=== PATIENT | female | born 2000 | race Caucasian/White ===

== ENCOUNTER 2019-02-22 21:15 | Emergency (ER) | payer MEDICAID ==
[~2019-02-22] VITALS: Ht 172.7 cm; Wt 105.0 kg
[2019-02-22 22:51] LABS: CLARITY URINE CLEAR (CLEAR); COLOR URINE YELLOW (YELLOW); KETONES URINE TRACE (NEGATIVE); LEUKOCYTE ESTERASE URINE TRACE (NEGATIVE); NITRITE URINE NEGATIVE (NEGATIVE); OCCULT BLOOD URINE NEGATIVE (NEGATIVE); PH URINE 6.5 (4.5-8.0); PROTEIN URINE NEGATIVE (NEGATIVE); SPECIFIC GRAVITY URINE 1.033 (1.005-1.030)
[2019-02-23 02:09] LABS: BASOPHILS % 0.4 % (0.0-2.0); EOSINOPHILS % 1.9 % (0.0-5.0); HEMATOCRIT. 34.5 % (36.0-48.0); HEMOGLOBIN. 11.9 g/dL (12.0-16.0); LYMPHOCYTES % 27.7 % (20.0-50.0); MEAN CORPUSCULAR HEMOGLOBIN 30.3 pg (28.0-32.0); MEAN CORPUSCULAR VOLUME 88.4 fL (81.0-99.0); MEAN PLATELET VOLUME 10.2 fl (7.4-10.4); MONOCYTES % 7.4 % (2.0-8.0); NEUTROPHILS % 62.6 % (40.0-76.0); PLATELET 228 x1000/uL (130-400); RED BLOOD CELL COUNT 3.91 mill/uL (4.2-5.4); RED CELL DISTRIBUTION WIDTH 14.2 % (11.6-14.6)
[2019-02-23 02:16] LABS: CHLORIDE 106 mEq/L (98-107)
[2019-02-23 02:39] LABS: B-HCG QUANTITATIVE 29647 mIU/mL (<3)
[2019-02-23 06:05] VITALS: BP 103/45
== END 2019-02-23 06:31 | disposition home or self-care (01) ==
LOC: ER 21:15
DX: O20.0 Threatened abortion (principal); O26.891 Other specified pregnancy related conditions, first trimester; O23.41 Unspecified infection of urinary tract in pregnancy, first trimester; Z3A.12 12 weeks gestation of pregnancy
CPT/HCPCS: 36415; 76801; 76817; 80053; 81003; 81025; 84702; 85025; 86850; 86900; 86901; 99284; Z7610

== ENCOUNTER 2019-08-28 03:29 | Inpatient (IN) | payer MEDICAID, MEDICARE ==
[~2019-08-28] VITALS: Ht 175.3 cm; Wt 113.4 kg
[2019-08-28] MEDS ORDERED: PNV1TABL50 PO (05:11)
[2019-08-28] MEDS ORDERED: LACTATED RINGERS 1,000 ML IV SCH (05:15)
[2019-08-28] MEDS ORDERED: CARBOPROST TROMETHAMINE 250 MCG/ML AMPUL IM PRN (07:45)
[2019-08-28] MEDS ORDERED: MISOPROSTOL 100MCG TABLET VG PRN (07:45)
[2019-08-28] MEDS ORDERED: BUTORPHANOL TARTRATE 2 MG/ML VIAL IV PRN (07:45)
[2019-08-28] MEDS ORDERED: NALOXONE HCL 0.4 MG/ML 1ML VIAL IM PRN (07:45)
[2019-08-28] MEDS ORDERED: LIDOCAINE HCL 1% 20ML VIAL (Pyxis) INJ INFIL PRN (07:45)
[2019-08-28] MEDS ORDERED: METHYLERGONOVINE MALEATE 0.2 MG/ML IM PRN (07:45)
[2019-08-28] MEDS ORDERED: DEXT 5%/LR + PITOCIN 20UNITS/L 1,000 ML IV SCH ×2 (07:46→16:28)
[2019-08-28] MEDS: LACTATED RINGERS 1,000 ML IV SCH ×2 (08:04→11:53)
[2019-08-28 08:15] LABS: KETONES URINE NEGATIVE (NEGATIVE); LEUKOCYTE ESTERASE URINE 1+ (NEGATIVE); NITRITE URINE NEGATIVE (NEGATIVE); OCCULT BLOOD URINE 1+ (NEGATIVE); PH URINE 5.5 (4.5-8.0); PROTEIN URINE NEGATIVE (NEGATIVE); UROBILINOGEN URINE 0.2 E.U./dL (0.2-1.0)
[2019-08-28 08:15] LABS: BASOPHILS % 0.3 % (0.0-2.0); EOSINOPHILS % 1.4 % (0.0-5.0); HEMOGLOBIN. 12.1 g/dL (12.0-16.0); LYMPHOCYTES % 17.9 % (20.0-50.0); MEAN CORPUSCULAR HEMOGLOBIN 29.6 pg (28.0-32.0); MEAN CORPUSCULAR VOLUME 88.2 fL (81.0-99.0); MEAN PLATELET VOLUME 10.6 fl (7.4-10.4); MONOCYTES % 6.3 % (2.0-8.0); NEUTROPHILS % 74.1 % (40.0-76.0); PLATELET 224 x1000/uL (130-400); RED BLOOD CELL COUNT 4.08 mill/uL (4.2-5.4); RED CELL DISTRIBUTION WIDTH 14.9 % (11.6-14.6)
[2019-08-28 08:18] LABS: COLOR URINE PALE YELLOW (YELLOW)
[2019-08-28 08:19] LABS: CLARITY URINE SL HAZY (CLEAR)
[2019-08-28 08:25] LABS: INR 0.9; PARTIAL THROMBOPLASTIN TIME 33.9 sec (23.4-31.0)
[2019-08-28] MEDS ORDERED: AMPICILLIN 2,000 MG in SODIUM CHLORIDE 0.9% 100 ML IV SCH (08:30)
[2019-08-28 08:35] LABS: *AMPHETAMINES SCREEN URINE NEGATIVE (NEGATIVE); *BARBITURATES SCREEN URINE NEGATIVE (NEGATIVE); *COCAINE SCREEN URINE NEGATIVE (NEGATIVE)
[2019-08-28 08:36] LABS: *BENZODIAZEPINES SCREEN URINE NEGATIVE (NEGATIVE); CANNABINOID URINE SCREEN NEGATIVE (NEGATIVE); METHADONE URINE SCREEN NEGATIVE (NEGATIVE); OPIATES URINE SCREEN NEGATIVE (NEGATIVE); PHENCYCLIDINE URINE SCREEN NEGATIVE (NEGATIVE)
[2019-08-28] MEDS ORDERED: ROPIVACAINE HCL/PF EPIDURAL 200 ML EPI SCH (10:15)
[2019-08-28 11:44] LABS: HEPATITIS B SURFACE ANTIGEN NEGATIVE
[2019-08-28] MEDS ORDERED: AMPICILLIN 1,000 MG in SODIUM CHLORIDE 0.9% 50 ML IV SCH (14:00)
[2019-08-28] MEDS ORDERED: LIDOCAINE HCL 2%/EPINEPHRINE 1:100,000 20 ML VIAL INFIL ONE (14:39)
[2019-08-28] MEDS ORDERED: ACETAMINOPHEN WITH CODEINE 300/30MG TABLET PO PRN ×2 (16:30)
[2019-08-28] MEDS ORDERED: HEMORRHOIDAL SUPP PR PRN (16:30)
[2019-08-28] MEDS ORDERED: IBUPROFEN 400MG TABLET PO PRN (16:30)
[2019-08-28] MEDS ORDERED: BENZOCAINE/LANOLIN/ALOE VERA SPRAY TOP PRN (16:30)
[2019-08-28 20:45] VITALS: BP 102/58
[2019-08-28 21:15] VITALS: BP 108/60
[2019-08-28] MEDS: GLYCERIN/WITCH HAZEL LEAF MEDICATED PAD TOP PRN (22:05)
[2019-08-28] MEDS: DOCUSATE SODIUM 100MG CAPSULE PO SCH (22:05)
[2019-08-28] MEDS: SIMETHICONE 80MG TABLET CHEW PO SCH (22:09)
[2019-08-29 04:50] VITALS: BP 110/56
[2019-08-29 06:32] LABS: BASOPHILS % 0.3 % (0.0-2.0); EOSINOPHILS % 0.5 % (0.0-5.0); HEMATOCRIT. 33.1 % (36.0-48.0); HEMOGLOBIN. 11.1 g/dL (12.0-16.0); LYMPHOCYTES % 22.6 % (20.0-50.0); MEAN CORPUSCULAR HEMOGLOBIN 29.4 pg (28.0-32.0); MEAN CORPUSCULAR VOLUME 87.9 fL (81.0-99.0); MEAN PLATELET VOLUME 10.1 fl (7.4-10.4); MONOCYTES % 6.3 % (2.0-8.0); NEUTROPHILS % 70.3 % (40.0-76.0); PLATELET 199 x1000/uL (130-400); RED BLOOD CELL COUNT 3.77 mill/uL (4.2-5.4); RED CELL DISTRIBUTION WIDTH 14.7 % (11.6-14.6)
[2019-08-29 09:00] VITALS: BP 113/68
[2019-08-29] MEDS ORDERED: PRENATAL VIT/FE FUMARATE/FA TABLET PO SCH (09:00)
[2019-08-29] MEDS: SIMETHICONE 80MG TABLET CHEW PO SCH ×3 (10:04→21:20)
[2019-08-29] MEDS: FERROUS SULFATE 325MG TABLET PO SCH ×2 (10:05→17:30)
[2019-08-29 17:00] VITALS: BP 105/55
[2019-08-29 19:50] VITALS: BP 108/57
[2019-08-29] MEDS: DOCUSATE SODIUM 100MG CAPSULE PO SCH (21:20)
[2019-08-30 05:15] VITALS: BP 113/61
[2019-08-30] MEDS: GLYCERIN/WITCH HAZEL LEAF MEDICATED PAD TOP PRN (05:24)
[2019-08-30 08:00] VITALS: BP 109/68
== END 2019-08-30 10:30 | disposition home or self-care (01) | DRG 560 ==
LOC: OBSVTOIN 03:29 → 8EST NSY 03:29 → 8 EST A/PP 07:09 → 8 EST LDRP 07:39 → 8EST 17:20
PROVIDERS: ADMIT Obstetrics & Gynecology; ATTEND Obstetrics & Gynecology
PROC: 10E0XZZ Delivery of Products of Conception, External Approach (ICD-10-PCS; principal; 2019-08-30)
PROC: 3E0R3BZ Introduction of Anesthetic Agent into Spinal Canal, Percutaneous Approach (ICD-10-PCS; 2019-08-30)
PROC: 00HU33Z Insertion of Infusion Device into Spinal Canal, Percutaneous Approach (ICD-10-PCS; 2019-08-30)
DX: O80 Encounter for full-term uncomplicated delivery (principal); Z37.0 Single live birth; Z3A.39 39 weeks gestation of pregnancy
CPT/HCPCS: 36415; 80305; 81003; 86592; 86703; 86762; 86850; 86900; 87340; 99281; J0290; J0595; J2590; J2795; J3490; J7050; J7120; A4315